=== PATIENT | male | born 1940 | race Caucasian/White ===

== ENCOUNTER 2020-10-20 15:37 | Outpatient (CLI) | payer MEDICARE, BC | END 2020-10-20 15:38 | disposition home or self-care (01) | LOC: CSHULT 15:37 | PROVIDERS: ATTEND Internal Medicine Nephrology | DX: Z01.818 Encounter for other preprocedural examination (principal); N18.5 Chronic kidney disease, stage 5; Z99.2 Dependence on renal dialysis | CPT/HCPCS: 93970 ==